=== PATIENT | male | born 1970 | race Caucasian/White ===

== ENCOUNTER 2019-12-08 23:45 | Emergency (ER) | payer BC ==
[2019-12-08 23:59] VITALS: BMI 30.1
--- NOTE | 2019-12-09 00:25 | PDOC ---
History of Present Illness <Kacey Garcia - Last Filed: 12/09/19 02:03> - History of Present Illness Initial Comments: 12/09/19 01:24 49 y/o M hx of HLD, kidney stones (requiring lithotripsy) presents to the ER intoxicated. He was nell in by police. Pt is sleepy but arousable, and is unable to speak coherently. 12/09/19 01:52 <April Osullivan - Last Filed: 01/03/20 12:29> - General Chief Complaint: Alcohol intoxication Stated Complaint: INTOXICATE Time Seen by Provider: 12/09/19 00:23 Past History - Immunization History TDAP Vaccination: Yes (February 2016) <Kacey Garcia - Last Filed: 12/09/19 02:03> - Past Medical History COPD: No Diabetes: No HTN: No Hypercholesterolemia: Yes Kidney Stones: Yes - Surgical History Orthopedic Surgery: Yes (L BICEP TEAR) - Psycho Social/Smoking Cessation Hx Smoking History: Unknown if ever smoked Have you smoked in the past 12 months: No Hx Alcohol Use: Yes Drug/Substance Use Hx: No <April Ousllivan - Last Filed: 01/03/20 12:29> - Past Medical History Allergies/Adverse Reactions: Allergies Allergy/AdvReac Type Severity Reaction Status Date / Time No Known Allergies Allergy Verified 12/08/19 23:58 Home Medications: Ambulatory Orders NK [No Known Home Medication] 02/27/16 *Physical Exam - Vital Signs Last Vital Signs Temp Pulse Resp BP Pulse Ox 79 18 118/70 99 12/08/19 23:56 12/08/19 23:56 12/08/19 23:56 12/08/19 23:56 <Kacey Garcia - Last Filed: 12/09/19 02:03> - Vital Signs Last Vital Signs Temp Pulse Resp BP Pulse Ox 79 18 118/70 99 12/08/19 23:56 12/08/19 23:56 12/08/19 23:56 12/08/19 23:56 - Physical Exam 12/09/19 01:26 GENERAL: Drowsy but arousable. smell of alcohol on breath. HEAD: No signs of trauma, normocephalic, atraumatic EYES: PERRL, sclera anicteric, conjunctiva clear ENT: Auricles normal inspection, hearing grossly normal, nares patent, oropharynx clear without exudates. Moist mucosa NECK: Normal ROM, supple, no lymphadenopathy, JVD, or masses LUNGS: No distress, speaks mumbled sentences, clear to auscultation bilaterally HEART: Regular rate and rhythm, normal S1 and S2, no murmurs, rubs or gallops, peripheral pulses normal and equal bilaterally. ABDOMEN: Soft, epigastric and RUQ tenderness No guarding, no rebound. No masses EXTREMITIES : Normal inspection, Normal range of motion, no edema. No clubbing or cyanosis NEUROLOGICAL: Cranial nerves II through XII grossly intact. slurred speech. able to follow some commands, 12/09/19 01:26 <April Osullivan - Last Filed: 01/03/20 12:29> ED Treatment Course - LABORATORY CBC & Chemistry Diagram: 12/09/19 03:30 12/09/19 03:30 <April Osullivan - Last Filed: 01/03/20 12:29> Medical Decision Making - Medical Decision Making 12/09/19 01:29 49 y/o M hx of HLD, kidney stones (requiring lithotripsy) presents to the ER intoxicated workup RUQ u/s cbc, cmp, lipase banana bag for hydration Reassess afterwards. <April Osullivan - Last Filed: 01/03/20 12:29> Discharge <Kacey Garcia - Last Filed: 12/09/19 02:03> - Discharge Information Problems reviewed: Yes <April Osullivan - Last Filed: 01/03/20 12:29> - Discharge Information Clinical Impression/Diagnosis: Intoxication Condition: Improved Disposition: HOME - Patient Discharge Instructions Additional Instructions: You were seen in the emergency room today for intoxication. Please drink responsibly. Please come back to the emergency room if you have worsening abdominal pain, have blood in the stool or vomit, or if any new or concerning symptom develops. If you are interested in detox, you can go to [facility]. Thank you
[2019-12-09] MEDS ORDERED: FOLIC ACID INJECTION - 1 MG, THIAMINE HCL 100 MG, MULTIVIT INJECTION ADULT 10 ML in SOD... IVPB ONE (01:20)
--- NOTE | 2019-12-09 01:46 | PDOC ---
Documentation entered by Jane Preston SCRIBE, acting as scribe for Kacey Garcia MD. Kacey Garcia MD: This documentation has been prepared by the Mohan zamarripa Nirvannie, SCRIBE, under my direction and personally reviewed by me in its entirety. I confirm that the documentation accurately reflects all work, treatment, procedures, and medical decision making performed by me. Attending Attestation - Resident Resident Name: ShiKelbyamber - ED Attending Attestation I have performed the following: I have examined & evaluated the patient, The case was reviewed & discussed with the resident, I agree w/resident's findings & plan, Exceptions are as noted - HPI HPI: 12/09/19 01:20 The patient is a 49 year old male with significant past medical history of HLD who presents to the emergency department with alcohol intoxication. Patient was found by [employer] intoxicated. History is limited secondary to patient's clinical condition thus, was obtained via [employer] and EMR. Last tetanus booster February 2016 - Physicial Exam PE: GENERAL: Awake, alert. Slurring words. +AOB. HEAD: Small abrasion to superior parietal scalp, no active bleeding EYES: PERRLA, EOMI, sclera anicteric, conjunctiva clear ENT: Auricles normal inspection, hearing grossly normal, nares patent, oropharynx clear without exudates. Moist mucosa NECK: Normal ROM, supple, no lymphadenopathy, JVD, or masses LUNGS: Breath sounds equal, clear to auscultation bilaterally. No wheezes, and no crackles HEART: Regular rate and rhythm, normal S1 and S2, no murmurs, rubs or gallops ABDOMEN: Soft, nontender, normoactive bowel sounds. No guarding, no rebound. No masses EXTREMITIES: Normal range of motion, no edema. No clubbing or cyanosis. No cords, erythema, or tenderness NEUROLOGICAL: Cranial nerves II through XII grossly intact. Slurred speech. + Unsteady gait. Motor and sensation intact SKIN: Warm, dry, normal turgor, no rashes or lesions noted. - Medical Decision Making Pt presents intoxicated, with signs of recent fall. The abrasion to the head has a scab in place, unclear if it occurred today. Will obtain CTH. Will monitor to clinical sobriety.
--- NOTE | 2019-12-09 02:18 | PDOC ---
*Physical Exam - Vital Signs Last Vital Signs Temp Pulse Resp BP Pulse Ox 79 18 118/70 99 12/08/19 23:56 12/08/19 23:56 12/08/19 23:56 12/08/19 23:56 ED Treatment Course - LABORATORY CBC & Chemistry Diagram: 12/09/19 03:30 12/09/19 03:30 - RADIOLOGY Radiology Studies Ordered: Category Date Time Status HEAD CT WITHOUT CONTRAST [CT] Stat CT Scan 12/09/19 02:08 Ordered Medical Decision Making - Medical Decision Making 12/09/19 03:11 Patient Name: DARIEN BRITT THIS IS A PRELIMINARY REPORT FROM [facility] EXAM: Right upper quadrant ultrasound IMAGES: 35 DATE OF EXAM: 2019-12-09 01:45:56 REASON FOR EXAM: Abdomen tenderness COMPARISON: None. FINDINGS: No sonographic evidence for cholelithiasis or acute cholecystitis. No evidence of biliary obstruction. Limited evaluation of the pancreatic head and body is grossly unremarkable. Probable hepatic steatosis. The right kidney is within normal limits without hydronephrosis. 12/09/19 06:14 Pt sobered up, he is refusing CT head and he wants to leave. He is A+Ox3 walking normally; able to walk in a straight line Stable for discharge. Discharge - Discharge Information Problems reviewed: Yes Clinical Impression/Diagnosis: Intoxication Condition: Improved Disposition: HOME - Follow up/Referral - Patient Discharge Instructions Additional Instructions: You were seen in the emergency room today for intoxication. Please drink responsibly. Please come back to the emergency room if you have worsening abdominal pain, have blood in the stool or vomit, or if any new or concerning symptom develops. If you are interested in detox, you can go to [facility]. Thank you - Post Discharge Activity
[2019-12-09 04:16] LABS: HEMATOCRIT 41.8 % (35.4-49); HEMOGLOBIN 14.4 GM/dL (11.7-16.9); MEAN CELL VOLUME 88.7 fl (80-96); RBC 4.71 M/mm3 (4.00-5.60); WHITE BLOOD COUNT 6.9 K/mm3 (4.0-10.0)
[2019-12-09 04:17] LABS: BASO % 0.8 % (0-2.0); EOS % 2.8 % (0-4.5); LYMPH % 55.6 % (8-40); MCH 30.5 pg (25.7-33.7); MCHC 34.3 g/dl (32.0-35.9); MEAN PLT VOLUME 8.5 fl (7.5-11.1); MONO % 6.4 % (3.8-10.2); NEUT % 34.4 % (42.8-82.8); PLATELET COUNT 231 K/MM3 (134-434); RDW 14.6 % (11.9-15.9)
[2019-12-09 04:43] LABS: BILIRUBIN,TOTAL 0.2 mg/dL (0.2-1); BLOOD UREA NITROGEN 17.8 mg/dL (7-18); CALCIUM 8.7 mg/dL (8.5-10.1); POTASSIUM 4.2 mmol/L (3.5-5.1); TOT PROT 7.4 g/dl (6.4-8.2)
--- NOTE | 2019-12-09 06:15 | PDOC ---
*Physical Exam - Vital Signs Last Vital Signs Temp Pulse Resp BP Pulse Ox 79 18 118/70 99 12/08/19 23:56 12/08/19 23:56 12/08/19 23:56 12/08/19 23:56 ED Treatment Course - LABORATORY CBC & Chemistry Diagram: 12/09/19 03:30 12/09/19 03:30 - ADDITIONAL ORDERS Additional order review: Laboratory Results 12/09/19 12/09/19 03:30 03:30 Sodium 142 Potassium 4.2 Chloride 109 H Carbon Dioxide 24 Anion Gap 9 BUN 17.8 Creatinine 1.0 Est GFR (CKD-EPI)AfAm 101.98 Est GFR (CKD-EPI)NonAf 87.99 Random Glucose 100 Calcium 8.7 Total Bilirubin 0.2 AST 33 ALT 44 Alkaline Phosphatase 70 Total Protein 7.4 Albumin 4.0 Lipase 97 12/09/19 03:30 RBC 4.71 MCV 88.7 MCHC 34.3 RDW 14.6 MPV 8.5 Neutrophils % 34.4 L D Lymphocytes % 55.6 H D Monocytes % 6.4 Eosinophils % 2.8 D Basophils % 0.8 Medical Decision Making - Medical Decision Making 12/09/19 06:20 49y M with PMH of of HLD, kidney stones (requiring lithotripsy) presenting via police for intoxication. signed out from Dr. Osullivan pt is somnolent but arousable. pending labs, US, CT head. fluids labs wnl. RUQ sono negative for acute pathology; hepatic steatosis. no stones. pt is aox4, normal gait. clincally sober. can be dc home. Discharge - Discharge Information Problems reviewed: Yes Clinical Impression/Diagnosis: Intoxication Condition: Good Disposition: HOME - Admission No - Follow up/Referral - Patient Discharge Instructions Additional Instructions: You were seen in the emergency room today for intoxication. Please drink responsibly. Please come back to the emergency room if you have worsening abdominal pain, have blood in the stool or vomit, or if any new or concerning symptom develops. If you are interested in detox, you can go to [facility]. Thank you - Post Discharge Activity
[2019-12-09 06:28] VITALS: BP 122/86; PULSE 80
== END 2019-12-09 06:25 | disposition home or self-care (01) ==
LOC: JER 23:45
PROC: 3E033GC Introduction of Other Therapeutic Substance into Peripheral Vein, Percutaneous Approach (ICD-10-PCS; principal; 2019-12-08)
DX: F10.120 Alcohol abuse with intoxication, uncomplicated (principal); E78.5 Hyperlipidemia, unspecified; Z87.442 Personal history of urinary calculi
CPT/HCPCS: 36415; 76705-TC; 80053; 83690; 85025; 99284-25; J7030

== ENCOUNTER 2021-05-29 16:11 | Emergency (ER) | payer BC ==
[2021-05-29 16:37] VITALS: TEMP 98.2; BMI 33.0
[2021-05-29 17:59] LABS: INR 0.91 (0.83-1.09); PROTHROMBIN TIME (PATIENT) 11.2 SEC (9.7-13.0)
[2021-05-29 18:02] LABS: ACTIVATED PTT 28.6 SECONDS (25.2-36.5)
[2021-05-29 18:04] LABS: CHLORIDE 107 mmol/L (98-107); SODIUM 139 mmol/L (136-145)
[2021-05-29 18:06] LABS: ALBUMIN 4.2 g/dl (3.4-5.0); ANION GAP 8 MMOL/L (8-16); CALCIUM 9.2 mg/dL (8.5-10.1); CO2 24 mmol/L (21-32); GLUCOSE,RANDOM 84 mg/dL (74-106); MAGNESIUM 1.9 mg/dL (1.8-2.4)
[2021-05-29 18:07] LABS: BLOOD UREA NITROGEN 18.4 mg/dL (7-18)
[2021-05-29 18:10] LABS: CREATININE 1.3 mg/dL (0.55-1.3); SGOT/AST 40 U/L (15-37); SGPT/ALT 57 U/L (13-61)
[2021-05-29 18:11] LABS: BILIRUBIN,TOTAL 0.6 mg/dL (0.2-1); TOT PROT 7.9 g/dl (6.4-8.2)
[2021-05-29 18:12] LABS: ALK PHOS 69 U/L (45-117)
[2021-05-29 18:15] LABS: N-TERMINAL BNP 219.2 pg/ml (5-125)
[2021-05-29 19:00] LABS: BASO % 1.2 % (0-2.0); EOS % 2.4 % (0-4.5); HEMATOCRIT 38.8 % (35.4-49); HEMOGLOBIN 13.3 GM/dL (11.7-16.9); LYMPH % 24.1 % (8-40); MCH 30.6 pg (25.7-33.7); MCHC 34.2 g/dl (32.0-35.9); MEAN CELL VOLUME 89.5 fl (80-96); MEAN PLT VOLUME 8.6 fl (7.5-11.1); MONO % 11.2 % (3.8-10.2); NEUT % 61.1 % (42.8-82.8); PLATELET COUNT 155 10^3/uL (134-434); RBC 4.34 M/mm3 (4.00-5.60); RDW 13.3 % (11.9-15.9); WHITE BLOOD COUNT 5.8 K/mm3 (4.0-10.0)
[2021-05-29] MEDS ORDERED: ASPIRIN 325 MG ENTERIC COATED TABLET (FP) PO ONE (19:41)
[2021-05-29] MEDS ORDERED: ASPIRIN 325 MG ENTERIC COATED TABLET (FP) ONE (19:48)
[2021-05-29 19:59] VITALS: BP 135/106; PULSE 107
== END 2021-05-29 20:11 | disposition home or self-care (01) ==
LOC: JER 16:11
DX: R06.02 Shortness of breath (principal); R07.89 Other chest pain
CPT/HCPCS: 36415; 71046-TC-FY; 80053; 82550; 82553; 83735; 83880; 84484; 85025; 85379; 85610; 85730; 93005; 93010; 99284-25; C9803; U0003; U0005

== ENCOUNTER 2024-10-20 06:54 | Emergency (ER) | payer BC ==
[2024-10-20 07:04] VITALS: BP 179/84; PULSE 79; RESP 18; TEMP 99.1; BMI 33.0
[2024-10-20] MEDS ORDERED: IBUPROFEN 400 MG TABLET (FP) PO ONE (08:08)
[2024-10-20] MEDS ORDERED: LIDOCAINE 5% TOPICAL PATCH ONE (08:08)
[2024-10-20] MEDS: LIDOCAINE 5% TOPICAL PATCH TP ONE (08:14)
[2024-10-20] MEDS: IBUPROFEN 400 MG TABLET (FP) PO ONE (08:14)
[2024-10-20] MEDS ORDERED: LIDOCAINE PATCH REMOVAL MC ONE (22:00)
== END 2024-10-20 08:58 | disposition home or self-care (01) ==
LOC: FER 06:54
DX: R07.81 Pleurodynia (principal); R05.9 Cough, unspecified; R09.81 Nasal congestion
CPT/HCPCS: 71046-TC-FY; 99283-25